=== PATIENT | male | born 1960 | race Caucasian/White ===

== ENCOUNTER → 2016-07-23 | Outpatient (CLI) | payer BC ==
[~2016-07-23] MED LIST: ASPI81TA28 PO; LEVO1TAB PO; LPT10 PO; LSN20 PO; NXM/40 PO; RANI300T2 PO; SYN137 PO
[2016-07-23 13:11] LABS: BASO % 0.3 %; BASO ABS # 0.01 K/uL (0-0.2); COMPLETE YES; EOS % 8.1 %; LYMPH % 29.4 %; LYMPH ABS # 1.06 K/uL (1.2-3.4); MEAN CELL VOLUME 84.4 fL (80-100); MEAN CORPUSCULAR HGB CONC 34.4 g/dl (32-36); MEAN PLATELET VOLUME 8.8 fL (7.4-10.4); MONO % 10.3 %; NEUT % 51.9 %; PLATELET COUNT 299 K/uL (130-400); RED BLOOD COUNT 4.62 M/uL (4.7-6.1)
[2016-07-23 13:27] LABS: BLOOD UREA NITROGEN 12 mg/dl (7-18); GLUCOSE 100 mg/dl (70-99)
[2016-07-23 13:28] LABS: ALB/GLOB RATIO 1.4 (0.9-2); ALKALINE PHOSPHATASE 87 U/L (45-117); ALT/SGPT 38 U/L (12-78); AST/SGOT 22 U/L (15-37); BUN/CREATININE RATIO 19.2 (10-20); CALCIUM 9.4 mg/dl (8.5-10.1); CARBON DIOXIDE 27 mmol/L (21-32); CHLORIDE 105 mmol/L (98-107); CHOLESTEROL 176 mg/dl (0-200); CREATININE 0.64 mg/dl (0.60-1.40); POTASSIUM 4.3 mmol/L (3.5-5.1); SODIUM 141 mmol/L (136-145); TRIGLYCERIDES 53 mg/dl (0-150); VERY LOW DENSITY LIPOPROT CALC 11 mg/dl
[2016-07-23 13:33] LABS: CHOLESTEROL/HDL RATIO 2.3; ESTIMATED AVERAGE GLUCOSE 117 mg/dl; HA1C FLAG Normal (Normal); HDL CHOLESTEROL 76 mg/dl; LDL CHOLESTEROL CALCULATED 89 mg/dl
== END | disposition home or self-care (01) ==
LOC: C.LABBC 10:32
PROVIDERS: ATTEND Internal Medicine
DX: D64.9 Anemia, unspecified (principal); I10 Essential (primary) hypertension; R73.03 Prediabetes; Z12.5 Encounter for screening for malignant neoplasm of prostate

== ENCOUNTER → 2016-08-30 | Outpatient (CLI) | payer BC ==
[2016-08-30 15:10] LABS: THYROID STIMULATING HORMONE 0.347 uIu/ml (0.300-4.500)
[2016-09-07 16:20] LABS: THYROGLOBULIN 3.3 NG/ML (2.8-40.9)
== END | disposition home or self-care (01) ==
LOC: C.LABBC 10:58
PROVIDERS: ATTEND Internal Medicine Endocrinology, Diabetes & Metabolism
DX: C73 Malignant neoplasm of thyroid gland (principal); E89.0 Postprocedural hypothyroidism

== ENCOUNTER 2017-01-20 15:22 | Emergency (ER) | payer OTHER, BC ==
[~2017-01-20] VITALS: Ht 175.3 cm; Wt 98.4 kg
[~2017-01-20 15:22] MED LIST changes: -ASPI81TA28 PO; -LPT10 PO; -LSN20 PO; -NXM/40 PO; -RANI300T2 PO; -SYN137 PO
[2017-01-20 15:25] VITALS: TEMP 36.8; Ht 175.3 cm; Wt 98.4 kg
[2017-01-20] MEDS ORDERED: SYN137 PO (16:06)
--- NOTE | 2017-01-20 16:18 | DIAGNOSTIC IMAGING REPORT ---
LEFT SHOULDER MIN 2 VIEWS ROUTINE CLINICAL HISTORY: Left shoulder pain COMPARISON: None. DISCUSSION: The patient can internally and externally rotate fully. No fractures or dislocations are visualized. There are no visible periarticular calcifications. IMPRESSION: Unremarkable conventional radiographic evaluation of the left shoulder Electronically signed by: Je Marroquin M.D. 01/20/2017 4:17 PM Dictated Date/Time: 01/20/2017 4:16 PM
--- NOTE | 2017-01-20 16:31 | EMERGENCY ROOM VISIT NOTE ---
ED Visit Note First contact with patient: 15:29 CHIEF COMPLAINT: Left shoulder injury at work 2 hours ago HISTORY OF PRESENT ILLNESS: Patient is a [id number] 56-year-old white male who presents to the emergency department for evaluation of a left shoulder injury that occurred at work earlier today. He works for [employer], and was re- feeling of off. He describes holding the heavy fuel hose over his head. He states that he was pulling on a in order to attach it to the bus, and while pulling and trying to block the hose, he felt a very sharp pain in the front of his left shoulder. He states the pain worsened over the next 15-20 minutes and it made it difficult for him to perform the rest of his duties. He complains of pain in the anterior aspect of the left shoulder that is worse with certain movements. He rates his discomfort a 5/10 presently. He does not take any medications, nor perform any intervention for his symptoms. 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 REVIEW OF SYSTEMS: Review of systems as per HPI. All other systems reviewed were negative. At least 6 systems reviewed. PMH: Electronic medical records are reviewed and summarized as above/below. See Problem List. SOCIAL HISTORY: Patient lives at home with his . Nonsmoker. PHYSICAL EXAM: Vital Signs: Reviewed nurse's notes. CONSTITUTIONAL: Patient is a well-appearing 56-year-old white male who is awake and alert and in no acute distress. MUSCULOSKELETAL: Examination of the left shoulder does not reveal any obvious deformity. No soft tissue swelling, ecchymosis or abrasions are noted. There is no tenderness over the clavicle or the acromioclavicular joint. He is tender over the anterior aspect of the shoulder over the proximal biceps tendon insertion. He does not have any discomfort laterally over the rotator cuff insertion. Passive internal and external rotation are full. He has pain with abduction and forward flexion. Left upper extremity is neurovascularly intact. EMERGENCY DEPARTMENT COURSE: X-rays of the left shoulder were obtained, and negative for acute bony abnormality. The patient was agreeable to an arm sling. Conservative care measures were discussed. He will be kept out of work until seen and cleared to return by Worker's Compensation. He will need orthopedic follow-up for further care and management of his injury. Differential diagnoses entertained included fracture, sprain, contusion, dislocation, rotator cuff tear, proximal biceps tendon injury, bursitis, tendinitis, among others. Medication reconciliation: I attest that I have personally reviewed the patient' s current medication list. Blood pressure screening: Patient was found to have a slightly elevated blood pressure due to circumstances. I do not believe that the patient requires hypertension monitoring. LEFT SHOULDER MIN 2 VIEWS ROUTINE CLINICAL HISTORY: Left shoulder pain COMPARISON: None. DISCUSSION: The patient can internally and externally rotate fully. No fractures or dislocations are visualized. There are no visible periarticular calcifications. IMPRESSION: Unremarkable conventional radiographic evaluation of the left shoulder Problem List Medical Problems: (1) Abnormal ECG Status: Resolved (2) Asthma Status: Chronic (3) Asthma, Unspecified Status: Chronic (4) Atypical chest pain Status: Resolved (5) Chest pain Status: Resolved (6) Difficulty swallowing Status: Resolved (7) Esophageal Reflux Status: Chronic (8) HTN (hypertension) Status: Chronic (9) Hyperlipidemia, Unspecified Status: Chronic (10) Malign Neopl Thyroid Status: Resolved (11) Postprocedural Hypothyroidism Status: Chronic (12) Thyroid mass of unclear etiology Status: Resolved Surgical Problems: (1) H/O eye surgery Status: Resolved (2) History of appendectomy Status: Resolved (3) History of thyroidectomy Status: Resolved Current/Historical Medications Scheduled Aspirin (Aspirin Ec), 81 MG PO DAILY Atorvastatin (Atorvastatin Calcium), 10 MG PO QAM Esomeprazole Magnesium (Nexium), 40 MG PO QAM Levothyroxine Sodium (Levothyroxine Sodium), 137 MCG PO QAM Lisinopril (Lisinopril), 20 MG PO QAM Ranitidine Hcl (Zantac), 300 MG PO HS Allergies Coded Allergies: No Known Allergies (Verified , 08/20/14) Vital Signs Date Time Temp Pulse Resp B/P (MAP) Pulse Ox O2 Delivery O2 Flow Rate FiO2 01/20/17 15:25 36.8 98 16 162/104 96 Room Air Departure Information Impression Primary Impression: Injury of left shoulder Additional Impression: Work related injury Referrals Pro,Marvin Zarate M.D. (PCP) Patient Instructions My [facility] Additional Instructions Ibuprofen(Motrin, Advil) may be used for fever or pain. Use 600mg every six hours as needed. Take with food. Avoid using more than 2400mg in a 24 hour period. Do not use 2400mg per day for more than three consecutive days without physician direction. Prolonged inappropriate use can lead to stomach upset or ulcers. This medication can be taken if you need to drive, work, or perform activities which may be dangerous when taking narcotic pain medication. (AND/OR) Acetaminophen(Tylenol) may be used for fever or pain. Use 1000mg every six hours as needed. Avoid using more than 3000mg in a 24 hour period. This medication can be taken if you need to drive, work, or perform activities which may be dangerous when taking narcotic pain medication. Ice compresses for 20 minutes at a time four times daily for 2-3 days. Use the sling as instructed. Remove your arm from the sling 4-6 times a day and move all the joints around to keep them loose. Rest and elevate your injury. Continue current medications. Return to the ER immediately for any numbness, tingling, severe pain, extreme swelling in the extremity or as needed. Follow up with orthopedics as covered by your workers compensation insurance for further care and evaluation. Problem Qualifiers
[2017-01-20] MEDS ORDERED: NXM/40 PO (16:36)
[2017-01-20] MEDS ORDERED: ASPI81TA28 PO (16:36)
[2017-01-20 16:45] VITALS: BP 142/98; PULSE 92; O2SAT 98
[2017-01-20] MEDS ORDERED: LSN20 PO (17:05)
[2017-01-20] MEDS ORDERED: LPT10 PO (17:05)
[2017-01-20] MEDS ORDERED: RANI300T2 PO (19:38)
== END 2017-01-20 16:45 | disposition home or self-care (01) ==
LOC: C.EDB 15:23 → C.EDD 16:45
DX: S49.92XA Unspecified injury of left shoulder and upper arm, initial encounter (principal); X50.0XXA Overexertion from strenuous movement or load, initial encounter; Y92.89 Other specified places as the place of occurrence of the external cause; Y93.89 Activity, other specified; Y99.0 Civilian activity done for income or pay; J45.909 Unspecified asthma, uncomplicated; K21.9 Gastro-esophageal reflux disease without esophagitis; I10 Essential (primary) hypertension; E78.5 Hyperlipidemia, unspecified; Z85.850 Personal history of malignant neoplasm of thyroid; E89.0 Postprocedural hypothyroidism; Z79.82 Long term (current) use of aspirin; Z79.899 Other long term (current) drug therapy

== ENCOUNTER → 2017-09-07 | Outpatient (CLI) | payer BC ==
[~2017-09-07] MED LIST changes: +ASPI81TA28 PO; -LEVO1TAB PO; +LPT10 PO; +LSN20 PO; +NXM/40 PO; +RANI300T2 PO; +SYN137 PO
[2017-09-07 09:51] LABS: ALT/SGPT 37 U/L (12-78); AST/SGOT 21 U/L (15-37); BLOOD UREA NITROGEN 20 mg/dl (7-18); CALCIUM 9.2 mg/dl (8.5-10.1); CARBON DIOXIDE 27 mmol/L (21-32); CREATININE 0.89 mg/dl (0.60-1.40); GLUCOSE 98 mg/dl (70-99); POTASSIUM 4.5 mmol/L (3.5-5.1); SODIUM 140 mmol/L (136-145)
== END | disposition home or self-care (01) ==
LOC: C.LAB1850 07:22
PROVIDERS: ATTEND Internal Medicine Endocrinology, Diabetes & Metabolism
DX: E78.5 Hyperlipidemia, unspecified (principal); C73 Malignant neoplasm of thyroid gland; I10 Essential (primary) hypertension

== ENCOUNTER → 2017-09-07 | Outpatient (CLI) | payer BC ==
--- NOTE | 2017-09-07 07:50 | DIAGNOSTIC IMAGING REPORT ---
NECK ULTRASOUND CLINICAL HISTORY: History of papillary thyroid carcinoma. Postablative hypothyroidism. COMPARISON STUDY: Neck ultrasound April 04, 2016. TECHNIQUE: Sonography of the thyroidectomy bed and adjacent soft tissues was performed. FINDINGS: Note is made of a 1.2 x 1.1 x 0.9 cm hypoechoic focus with central 0.7 cm echogenic focus within the inferior aspect of the right thyroidectomy bed. This was not visualized on exam of April 04, 2016. This is nonspecific and was not overtly suspicious on real-time imaging. The left thyroidectomy bed was normal. The adjacent soft tissues were unremarkable. No cervical lymphadenopathy was identified. IMPRESSION: 1.2 x 1.1 x 0.9 cm hypoechoic focus with central echogenic focus within the inferior aspect of the right thyroidectomy bed. This is nonspecific however was not overtly suspicious on real-time imaging and did not appear to represent a pathologic lymph node. A follow-up ultrasound in 6 months to ensure stability could be obtained. Ultrasound-guided fine needle aspiration may be difficult given size and inferior location however could be attempted if desired. Electronically signed by: Nick Ortiz M.D. 09/07/2017 7:49 AM Dictated Date/Time: 09/07/2017 7:07 AM
== END | disposition home or self-care (01) ==
LOC: C.ULTR 06:30
PROVIDERS: ATTEND Internal Medicine Endocrinology, Diabetes & Metabolism
DX: C73 Malignant neoplasm of thyroid gland (principal); E89.0 Postprocedural hypothyroidism